=== PATIENT | female | born 1945 ===

== ENCOUNTER 2023-12-22 13:04 | Outpatient (CLI) | payer MEDICARE, OTHER, SELFPAY ==
--- NOTE | 2023-12-22 13:00 | RT.EKG_ITS ---
APPROVED REPORT Exam: Resting ECG Reason for Exam: PALPITATIONS Patient Location: O HR:72 bpm ECG Measurements Heart Rate 72 AXIS ND 164 P -29 QRSd 92 QRS -38 QT 384 T 64 QTc 421 Conclusion Sinus rhythm...normal P axis, V-rate 50- 99 Abnormal R-wave progression, early transition...QRS area>0 in V2 Inferior infarct, old...Q >35mS, II III aVF
== END 2023-12-22 13:05 | disposition home or self-care (01) ==
PROVIDERS: PCP Nurse Practitioner Family; Visit Provider Internal Medicine Cardiovascular Disease
DX: R00.2 Palpitations (principal)
CPT/HCPCS: 93005; 93010

== ENCOUNTER 2023-12-27 10:28 | Outpatient (CLI) | payer MEDICARE, OTHER, SELFPAY ==
[2023-12-27 09:43] LABS: Abs Immature Grans 0.15 10^3/uL (0.0-0.06); Absolute Basophil Count 0.02 10^3/uL (0.0-0.2); Absolute Eosinophil Count 0.02 10^3/uL (0.0-0.7); Absolute Lymphocyte Count 1.79 10^3/uL (1.2-3.4); Absolute Monocyte Count 0.65 10^3/uL (0.1-0.8); Absolute Neutrophil Count 4.97 10^3/uL (1.2-6.7); Basophils % 0.3 %; Eosinophils % 0.3 %; HCT 41.1 % (36.0-46.0); HGB 13.1 g/dL (11.2-15.7); Lymphocytes % 23.6 %; MCH 31.7 pg (27.0-33.0); MCHC 31.9 % (32.0-36.0); MCV 100 fL (80-95); MPV 8.6 fL (8.0-11.0); Monocytes % 8.6 %; Neutrophils % 65.2 %; Platelet Count 346 10^3/uL (130-400); RBC 4.13 10^6/uL (3.93-5.22); RDW 15.9 % (11.7-14.6); RDW-SD 58.7 fL
[2023-12-27 10:20] LABS: ALT 35 U/L (14-59); AST 16 U/L (15-37); Alkaline Phosphatase 27 U/L (46-116); Anion Gap 7.5 mmol/L (3-11); BUN 20 mg/dL (7-18); Bilirubin, Total 0.46 mg/dL (0.2-1.0); CO2 28.5 mmol/L (21.0-32.0); CREATININE 1.1 mg/dL (0.55-1.02); Calcium 9.3 mg/dL (8.5-10.1); Chloride 106 mmol/L (98-107); Estimated GFR 52.08 (mL/min/1.73m2); Glucose 72 mg/dL (74-106); Potassium 3.7 mmol/L (3.5-5.1); Sodium 142 mmol/L (136-145); Total Protein 6.6 g/dL (6.4-8.2)
== END 2023-12-27 10:29 | disposition home or self-care (01) ==
PROVIDERS: PCP Physician Assistant; Visit Provider Psychiatry & Neurology Neurology
DX: C71.9 Malignant neoplasm of brain, unspecified (principal)
CPT/HCPCS: 36415; 80053; 85025

== ENCOUNTER 2024-01-03 11:08 | Outpatient (CLI) | payer MEDICARE, OTHER, SELFPAY ==
[2024-01-03 10:40] LABS: Abs Immature Grans 0.15 10^3/uL (0.0-0.06); Absolute Basophil Count 0.03 10^3/uL (0.0-0.2); Absolute Eosinophil Count 0.02 10^3/uL (0.0-0.7); Absolute Lymphocyte Count 1.41 10^3/uL (1.2-3.4); Absolute Monocyte Count 0.75 10^3/uL (0.1-0.8); Absolute Neutrophil Count 5.76 10^3/uL (1.2-6.7); Basophils % 0.4 %; Eosinophils % 0.2 %; HCT 38.7 % (36.0-46.0); HGB 12.8 g/dL (11.2-15.7); Immature Grans % 1.8 %; Lymphocytes % 17.4 %; MCH 32.3 pg (27.0-33.0); MCHC 33.1 % (32.0-36.0); MCV 98 fL (80-95); MPV 8.7 fL (8.0-11.0); Monocytes % 9.2 %; Platelet Count 243 10^3/uL (130-400); RBC 3.96 10^6/uL (3.93-5.22); RDW 15.9 % (11.7-14.6); RDW-SD 57.4 fL; WBC 8.12 10^3/uL (4.4-10.8)
== END 2024-01-03 11:09 | disposition home or self-care (01) ==
LOC: LBO 11:08
PROVIDERS: PCP Physician Assistant; Visit Provider Psychiatry & Neurology Neurology
DX: C71.9 Malignant neoplasm of brain, unspecified (principal)
CPT/HCPCS: 36415; 85025

== ENCOUNTER 2024-01-10 09:58 | Outpatient (CLI) | payer MEDICARE, OTHER, SELFPAY ==
[2024-01-10 09:35] LABS: Abs Immature Grans 0.15 10^3/uL (0.0-0.06); Absolute Basophil Count 0.03 10^3/uL (0.0-0.2); Absolute Eosinophil Count 0.07 10^3/uL (0.0-0.7); Absolute Lymphocyte Count 1.51 10^3/uL (1.2-3.4); Absolute Monocyte Count 0.44 10^3/uL (0.1-0.8); Absolute Neutrophil Count 4.94 10^3/uL (1.2-6.7); Basophils % 0.4 %; HCT 42.4 % (36.0-46.0); HGB 13.3 g/dL (11.2-15.7); Immature Grans % 2.1 %; Lymphocytes % 21.1 %; MCH 31.4 pg (27.0-33.0); MCHC 31.4 % (32.0-36.0); MCV 100 fL (80-95); MPV 8.8 fL (8.0-11.0); Monocytes % 6.2 %; Neutrophils % 69.2 %; Platelet Count 178 10^3/uL (130-400); RBC 4.23 10^6/uL (3.93-5.22); RDW 16.4 % (11.7-14.6); RDW-SD 60.2 fL; WBC 7.14 10^3/uL (4.4-10.8)
== END 2024-01-10 09:59 | disposition home or self-care (01) ==
LOC: LBO 09:59
PROVIDERS: PCP Physician Assistant; Visit Provider Psychiatry & Neurology Neurology
DX: C71.9 Malignant neoplasm of brain, unspecified (principal)
CPT/HCPCS: 36415; 85025

== ENCOUNTER 2024-02-06 01:51 | Outpatient (CLI) | payer MEDICARE, OTHER, SELFPAY ==
--- NOTE | 2024-02-06 | DI.MRI_ITS ---
Exam(s) MR BRAIN WO/W EXAM: MR BRAIN WO/W CLINICAL HISTORY: GBM, C71.9, 1 mo s/p chemoRT. Eval for interval response.. TECHNIQUE: Multiplanar multisequence MRI of the brain was performed. CONTRAST MATERIAL: IV Contrast: 17 ML of Dotarem contrast administered. COMPARISON: MR MR BRAIN WO CONTRAST from 08/30/[address] CTA HEAD/NECK W/ AND/OR WO CONT from 08/30/[address] HEAD/BRAIN WO CONTRAST from 11/21/2023 MR MR HEAD W WO CONTRAST from 11/22/2023 FINDINGS: Exam is mildly limited by motion, mainly the postcontrast images. VENTRICLES AND EXTRA AXIAL SPACES: Slight mass effect upon the right lateral ventricle. HEMORRHAGE: None. CEREBRAL PARENCHYMA: No focus of restricted diffusion to suggest acute infarct.Tiny focus of restrict ed diffusion noted in the high left parietal lobe is no longer present. 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 It shows increased per ipheral enhancement. There is less associated edema and no midline shift. An additional enhancing les ion is seen more superiorly in the posterior right frontal lobe which shows increased enhancement com pared with the previous exam. This lesion measures 14 x 10 by 10 millimeters. . There are no new lesi ons. BRAINSTEM/CEREBELLUM: Normal. CALVARIUM: Normal. VISUALIZED PARANASAL SINUSES/MASTOIDS: Clear. Orbits: Unremarkable. Pituitary: Not enlarged. Vasculature: Normal flow voids. IMPRESSION: Mild interval increase in size of previously noted right temporal lobe mass. Stable size but increased enhancement associated with the lesion in the posterior right frontal lobe. DATA REPOSITORY:
[2024-02-06] MEDS: Normal Saline Flush 10 ML SYR IVP (11:00)
[2024-02-06] MEDS: Gadoterate meglumine 20 ML SYRINGE 17 ML IVP (11:01)
== END 2024-02-06 02:11 ==
PROVIDERS: PCP Emergency Medicine; Visit Provider Radiology Radiation Oncology
DX: C71.2 Malignant neoplasm of temporal lobe (principal)
CPT/HCPCS: 70553